=== PATIENT | male | born 2000 | race Two or more races ===

== ENCOUNTER 2020-06-24 11:46 | Outpatient (REF) | payer OTHER, SELFPAY | END 2020-06-24 11:47 | disposition home or self-care (01) | LOC: HO.LAB 11:46 | PROVIDERS: Visit Provider Internal Medicine | DX: Z20.828 Contact with and (suspected) exposure to other viral communicable diseases (principal) | CPT/HCPCS: C9803; U0003 ==

== ENCOUNTER 2021-07-09 10:35 | Outpatient (REF) | payer OTHER, SELFPAY ==
[2021-07-09 11:56] LABS: COVID-19 Test Negative (Negative)
== END 2021-07-09 10:36 | disposition home or self-care (01) ==
LOC: HO.LAB 10:35
PROVIDERS: Visit Provider Internal Medicine
DX: Z20.822 Contact with and (suspected) exposure to COVID-19 (principal)
CPT/HCPCS: 36415; 87635; C9803

== ENCOUNTER 2021-12-17 19:09 | Emergency (ER) | payer OTHER, SELFPAY ==
[2021-12-17 20:14] VITALS: BP 123/77; PULSE 82; RESP 16; TEMP 37; O2SAT 98; BMI 26.6
[2021-12-17 20:47] LABS: COVID-19 Test Negative (Negative); IDNOW Serial# 16C4AD1C; IDNOW Serial# 55D5AD1C; Influenza A Positive (Negative); Influenza B2 Negative (Negative)
[2021-12-17 21:56] VITALS: BP 127/72; PULSE 76; RESP 12; TEMP 37; O2SAT 98
--- NOTE | 2021-12-17 22:18 | ED.URI ---
HPI - URI/Sore Throat General Chief Complaint: General Medical Stated Complaint: headache, body pain, fever, v/d Time Seen by Provider: 12/17/21 22:07 Source: patient Mode of arrival: ambulatory Limitations: no limitations History of Present Illness HPI Narrative: Patient presents emergency department for evaluation headache, body aches, tactile fevers, vomiting, diarrhea, and cough x4 days. He is able to tolerate p.o. intake overall, vomiting is infrequent. Denies any known sick contacts. Has taken at home COVID-19 tests x3 which were negative. Denies neck pain, neck stiffness, chest pain, palpitations, difficulty breathing, abdominal pain, dysuria. MD elicited complaint: fever and cough Onset (ago): day(s) Description of mucous: watery Able to tolerate fluids by mouth: Yes Exacerbating factors: nothing Related Data Previous Rx's Medication Instructions Recorded albuterol sulfate 90 mcg/actuation 2 puff INHALATION Q4-6H PRN #6.7 g 12/17/21 aerosol inhaler Allergies Allergy/AdvReac Type Severity Reaction Status Date / Time No Known Allergies Allergy Verified 12/17/21 22:24 Review of Systems Review of Systems: Constitutional: Positive fever. No chills. No weakness. Positive fatigue. Positive body aches ENT/ Mouth: No Ear Pain, no Nasal Congestion, no sore throat, No Rhinorrhea, No Swallowing Difficulty Skin: No rash or itching. Cardiovascular: No chest pain. No palpitations. Respiratory: No shortness of breath. Positive cough. No sputum production. Gastrointestinal: Positive nausea. Positive vomiting. Positive diarrhea. No abdominal pain. Genitourinary: No burning micturition. No urinary frequency. Neurologic: Positive headache. No dizziness. No syncope. No numbness or tingling in the extremities. Musculoskeletal: No muscle pain. No back pain. No joint pain or stiffness. Yes all other systems are reviewed and are negative REPLACED BY [facility] Past Medical History Attestation statement: The following information was validated with the patient. Source: old records reviewed Social History Social History Advance Directives: No Advance Directives Information Provided: No Physical Exam Vital Signs: Vital Signs: Last Vital Signs Temp 98.6 F 12/17/21 21:56 Pulse 76 12/17/21 21:56 Resp 12 12/17/21 21:56 BP 127/72 12/17/21 21:56 Pulse Ox 98 12/17/21 21:56 BMI result Body Mass Index 26.6 Vital signs have been reviewed as normal and appeared to be correct. Blood pressure normal.? Heart rate normal.? Respiration rate normal. Temperature normal.? Oxygen saturation normal. Appearance: Alert.?Oriented to person, place and time. No acute distress.?Normal affect. Eyes: Pupils equal, round and reactive to light.? ENT: TM normal bilaterally. Pharynx normal.?? Neck: Normal inspection.? Neck supple.??No cervical adenopathy CVS: Heart sounds normal. Normal heart rate and rhythm.? Pulses normal.?? Respiratory: No respiratory distress.? Lung sounds clear on the left, fine inspiratory wheezing on the right Abdomen: Soft and non-tender. Normoactive bowel sounds. Skin: Skin warm and dry.? Normal skin color.? ? Extremities: No lower extremity edema.? Neuro: Moves all extremities spontaneously. Sensation intact bilaterally. No motor deficits. Ambulates with normal steady gait. Course Course Course Narrative: Patient is a 21-year-old male with past medical history of mild intermittent asthma, presenting for evaluation of upper respiratory symptoms with vomiting and diarrhea. COVID-19 testing negative. Influenza testing positive. Abdominal exam benign. At this time history and physical exam not consistent with ACS/PE/pneumonia. Well-appearing, nontoxic, afebrile, no tachycardia or tachypnea/hypoxia. Speaking clear full sentences, ambulatory with steady gait. Discussed conservative treatment including rest, hydration, Tylenol/ibuprofen as needed for fever and body aches, saline nasal spray, humidifier, ccrg-pay-nmskldm cold medication. Patient requesting a new prescription for his albuterol inhaler as he has ran out, will send this to the pharmacy. Offered Tamiflu and he declined. Advised to follow-up with primary care provider as needed, discussed reasons to return back to the emergency department. All questions were answered. Patient discharged home in stable condition. MDM - URI/Sore Throat Medical Records Attestation: I reviewed the patient's medical records. Lab Data Attestation: I reviewed the patient's lab results. Labs: Lab Results 12/17/21 12/17/21 Range/Units 20:15 20:15 COVID-19 (JOSE RAMON) Negative (Negative) COVID-19 Clin Com See Note Influenza Type A (RACHEAL) Positive A (Negative) Influenza Type B (RACHEAL) Negative (Negative) Influenza A & B Note See Note Discharge Plan Discharge Clinical Impression: Influenza A Patient Disposition: Home, Self-Care Instructions: Influenza (ED) Additional Instructions: Be sure to rest, stay well hydrated drinking plenty of fluids, eat small frequent meals. Tylenol/ibuprofen can be used as needed for fever/pain. Zrov-iws-tmmncyl cold medications may be helpful as well for symptoms. Saline nasal spray, humidifier may be helpful. New prescription for albuterol inhaler was sent to the pharmacy. You may return to the emergency department with any new or worsening symptoms or concerns. Follow-up with your primary care provider as needed. Should remain out of school/ work until symptoms have resolved and have been without a fever for 24 hours without the use of Tylenol or ibuprofen. Prescriptions: New albuterol sulfate 90 mcg/actuation HFA aerosol inhaler 2 puff inhalation Q4-6H PRN (Reason: shortness of breath or wheezing) Qty: 6.7 0RF Referrals: Ambreen Liang MD [Primary Care Provider] -
== END 2021-12-17 22:34 | disposition home or self-care (01) ==
PROVIDERS: Emergency Provider Internal Medicine; PCP Internal Medicine
DX: J10.1 Influenza due to other identified influenza virus with other respiratory manifestations (principal); R51.9 Headache, unspecified; M79.10 Myalgia, unspecified site; R50.9 Fever, unspecified; Z20.822 Contact with and (suspected) exposure to COVID-19
CPT/HCPCS: 87502; 87635; 99282; 99283

== ENCOUNTER 2022-05-12 | Outpatient (REF) | payer OTHER, SELFPAY ==
--- NOTE | ~2022-05-12 | XR_ITS ---
EXAMINATION: XR SHOULDER, RIGHT CLINICAL INFORMATION: Pain COMPARISON: None TECHNIQUE: AP external rotation, Grashey, scapular Y, and axillary views of the right shoulder. FINDINGS: The bones and soft tissues are normal. No fracture. Glenohumeral and acromioclavicular alignment is anatomic with normal joint space. No abnormal soft tissue calcifications. XR/XR shoulder RT min 2V IMPRESSION: Unremarkable right shoulder exam.
== END 2022-05-12 00:01 | disposition home or self-care (01) ==
LOC: HO.HOSX
PROVIDERS: Visit Provider Physician Assistant
DX: M25.511 Pain in right shoulder (principal); G89.29 Other chronic pain; M25.311 Other instability, right shoulder
CPT/HCPCS: 73030; 99202

== ENCOUNTER 2022-05-31 14:20 | Outpatient (REF) | payer OTHER, SELFPAY ==
--- NOTE | ~2022-05-31 | FL_ITS ---
PROCEDURE: XR ARTHROGRAM SHOULDER, RIGHT CLINICAL INFORMATION: Instability right shoulder. COMPARISON: Previous x-ray 05/12/2022. TECHNIQUE/FINDINGS: Procedure and risks and benefits including bleeding and infection were discussed with the patient and informed consent was obtained. The patient was positioned in the supine position. The right anterior shoulder was prepped and draped in the usual sterile fashion. Using fluoroscopic guidance and a 22-gauge spinal needle, access to the right shoulder joint was obtained. 1-2 mL of Omnipaque 300 was injected fluoroscopically confirming adequate placement in the joint space. Subsequently, a mixture of dilute gadolinium and saline and 1% lidocaine plain was injected pre-MRI. FLUOROSCOPY TIME: 0.1 minutes DAP: 0.5 cGy-cm2 Total dose: 3.6 mGy FL/FL arthrogram shoulder RT IMPRESSION: Right shoulder pre-MRI arthrogram.
--- NOTE | ~2022-05-31 | MR_ITS ---
EXAMINATION: MR SHOULDER WITH CONTRAST, RIGHT CLINICAL INFORMATION: Right shoulder pain with decreased range of motion for 5-6 years. Sports injury. COMPARISON: Right shoulder radiographs 05/12/2022 TECHNIQUE: MRI of the shoulder was performed following the intra-articular administration of a dilute gadolinium-containing solution (arthrogram) on a high-field scanner. FINDINGS: ROTATOR CUFF: Intact. No muscle atrophy or fatty infiltration. BICEPS: Normally located and intact. CORACOACROMIAL ARCH: The undersurface of the acromion is minimally curved with no subacromial spur. The acromioclavicular joint is normal. LABRUM/CAPSULE: Intra-articular contrast extends into the substance of the superior labrum at and just posterior to the biceps labral anchor consistent with a small labral/SLAP tear as seen on coronal images 10 through 12. Remainder of the labrum is intact. No paralabral cyst. GLENOHUMERAL JOINT/MARROW: No fracture or marrow replacing lesion. NERVES: No compressive mass lesion in the quadrilateral space or along the suprascapular nerve course. MR/MR shoulder RT w con IMPRESSION: 1. Small labral/SLAP tear, as above. 2. Intact rotator cuff. 3. Intact appearance of the long head of biceps tendon. 4. No chondral or osseous injury. 5. Normal acromioclavicular joint.
== END 2022-05-31 14:21 | disposition home or self-care (01) ==
LOC: HO.XRAY 14:20
PROVIDERS: Visit Provider Physician Assistant
DX: M25.311 Other instability, right shoulder (principal)
CPT/HCPCS: 23350; 73040; 73222; A9585

== ENCOUNTER → 2022-06-14 12:32 | Outpatient (BNVA) | payer OTHER, SELFPAY | PROVIDERS: Visit Provider Orthopaedic Surgery | DX: S43.431A Superior glenoid labrum lesion of right shoulder, initial encounter (principal) | CPT/HCPCS: 99212 ==

== ENCOUNTER 2023-04-11 11:21 | Outpatient (REF) | payer OTHER, SELFPAY ==
[2023-04-11 15:25] LABS: CT PCR NOT DETECTED (Not Detect.); NG PCR NOT DETECTED (Not Detect.)
[2023-04-12 04:05] LABS: ~Hepatitis C Antibody Nonreactive (Nonreactive)
[2023-04-13 05:23] LABS: Herpes Simplex Type 1 IgG <0.90 index; Herpes Simplex Type 2 IgG <0.90 index
== END 2023-04-11 11:22 | disposition home or self-care (01) ==
LOC: HO.HHCL 11:21
PROVIDERS: Visit Provider General Practice
DX: Z11.3 Encounter for screening for infections with a predominantly sexual mode of transmission (principal)
CPT/HCPCS: 0353U; 86695; 86696; 86803

== ENCOUNTER 2023-10-19 18:51 | Emergency (ER) | payer MEDICAID, SELFPAY ==
[2023-10-19 19:19] VITALS: BP 115/51; PULSE 72; RESP 14; TEMP 37.1; O2SAT 98; BMI 31.8
--- NOTE | 2023-10-19 19:20 | ED_ITS ---
[facility] General Adult General Chief complaint: Nausea/Vomiting/Diarrhea Stated complaint: vomiting and bodyaches Time Seen by Provider: 10/19/23 23:29 Source: patient Mode of arrival: ambulatory History of Present Illness HPI narrative: 43-year-old male with presentation of body aches with associated nausea, vomiting, chills, sore throat and decreased p.o. intake. Patient does state that he has been able to tolerate oral intake for the past hour. Denies sick contacts Related Data Previous Rx's Medication Instructions Recorded albuterol sulfate 90 mcg/actuation 2 puff inhalation Q4-6H PRN 12/17/21 aerosol inhaler shortness of breath or wheezing #6.7 grams ondansetron 4 mg disintegrating 4 mg PO Q8H PRN nausea and 10/19/23 tablet vomiting 4 days #10 tabs Allergies Allergy/AdvReac Type Severity Reaction Status Date / Time No Known Allergies Allergy Verified 10/19/23 19:23 Review of Systems 2 Review of Systems: Pertinent positives and negatives as stated in [facility] Past Medical History Source: nursing notes reviewed Social History Social History Current occupational status: employed Current occupation: right handed, 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 GENERAL: Well developed, well nourished, in no acute distress. HEAD: Normocephalic/atraumatic EYES: PERRLA, EOMI EARS: Ext canals without abnormality, TMs non-bulging and non-erythematous NOSE: Nares patent bilateral OROPHARYNX: no oral lesions noted, posterior pharynx clear and non-erythematous without noted tonsillar enlargement/erythema/exudates NECK: Supple, no adenopathy LUNGS: Normal breath sounds. No adventitious sounds or accessory muscle use. SpO2<98> CARDIOVASCULAR: Regular rate and rhythm without noted murmurs ABDOMEN: Soft, non-tender, non-distended with bowel sounds. MUSCULOSKELETAL: No tenderness, deformities, or effusions noted on gross inspection. EXTREMITIES: No cyanosis, clubbing or edema. SKIN: Inspection of the skin reveals no rashes NEUROLOGIC: Alert and oriented x 4. Strength and sensation to light touch were grossly intact x 4. Course Course Course Narrative: This is an RME: Additional HPI, ROS, PE not included below will be deferred to primary provider. This is a [id number]-male, with a hx of asthma, presenting to the ER with complaints of sore throat, body aches, nausea, vomiting since yesterday. Unable to tolerate PO. No AP. VSS. Well appearing. Plan: Labs, Viral swabs, strep swab Medications Administered Discontinued Medications Generic Name Dose Route Start Last Admin Trade Name Freq PRN Reason Stop Dose Admin Acetaminophen 650 mg 10/19/23 23:51 10/19/23 23:55 Acetaminophen 325 Mg Tablet PO 10/19/23 23:52 650 mg ONCE ONE Administration Ibuprofen 400 mg 10/19/23 23:52 10/19/23 23:55 Ibuprofen 400 Mg Tablet PO 10/19/23 23:53 400 mg ONCE ONE Administration Ondansetron HCl 4 mg 10/19/23 19:59 10/19/23 23:54 Ondansetron Odt 4 Mg Tab.Rapdis TRANSLINGU 10/19/23 20:00 4 mg ONCE ONE Administration Medical Decision Making Medical Decision Making MDM Narrative: 23-year-old male with history and clinical presentation, DDX: Viral illness, viral gastroenteritis, strep throat I reviewed all investigations and hematologic indices are negative for leukocytosis/left shift/anemia/thrombocytopenia. Chemistry indices are negative for PRIMO/electrolytes/liver enzyme derangements. Viral testing is negative and rapid strep is negative. All findings discussed with patient at bedside and he was offered Zofran and combination analgesics and then discharged home with presumptive diagnosis of viral illness. Differential Diagnosis Differential Diagnoses: The differential diagnosis associated with the presentation includes Please see the discussion above Admission/Observation Consideration of admission/observation: Escalation of care including admission/observation considered Please see the discussion above Lab Data [facility] Lab Attestation statement: I reviewed the patient's lab results. Please see the discussion above 10/19/23 19:57 10/19/23 19:57 Labs: Lab Results 10/19/23 Range/Units 19:57 WBC 5.6 (4.8-10.8) X10*3/uL RBC 5.01 (4.60-5.80) X10*6/uL Hgb 14.3 (14.0-18.0) g/dl Hct 41.2 L (42.0-52.0) % MCV 82.2 (80.0-98.0) fL MCH 28.5 (27.0-33.0) pg MCHC 34.7 (31.0-36.0) g/dl RDW 11.8 (11.0-16.0) % Plt Count 223 (160-400) X10*3/uL MPV 8.5 L (9.4-12.4) fL Immature Gran % (Auto) 0.4 (0.0-0.4) % Neut % (Auto) 62.7 (45-73) % Lymph % (Auto) 19.9 L (20-40) % [place] % (Auto) 10.8 (2-11) % Eos % (Auto) 6.0 H (0-4) % Baso % (Auto) 0.2 (0-2) % Lymph # (Auto) 1.1 L (1.2-4.9) X10*3/uL [place] # (Auto) 0.6 (0.1-1.2) X10*3/uL Eos # (Auto) 0.3 (0.0-0.4) X10*3/uL Baso # (Auto) 0.0 (0.0-0.2) X10*3/uL Abs Immat Gran (auto) 0.02 (0.00-0.03) X10*3/uL Absolute Neuts (auto) 3.5 (2.0-8.3) x10*3/uL Absolute Nucleated RBC 0.000 (0.0-0.012) X10*3/uL Nucleated RBC % (auto) 0.0 (0.0-0.2) /100WBC Sodium 138 (135-145) mmol/L Potassium 3.9 (3.3-5.1) mmol/L Chloride 105 (96-108) mmol/L Carbon Dioxide 23 (22-29) mmol/L Anion Gap 14 (12-20) BUN 13 (9-16) mg/dL Creatinine 0.96 (0.5-1.4) mg/dL Estim Creat Clear Calc 114.9 Estimated GFR > 60 Random Glucose 86 (60-115) mg/dL Calcium 8.5 (8.4-10.2) mg/dL Total Bilirubin 0.3 (0.0-1.0) mg/dL Direct Bilirubin 0.1 (0.0-0.5) mg/dL AST 20 (5-37) U/L ALT 20 (0-40) U/L Alkaline Phosphatase 57 (39-117) U/L Total Protein 7.2 (6.5-8.0) g/dL Albumin 4.1 (3.5-5.0) g/dL Lipase 31 (8-78) U/L Influenza Type A (PCR) NEGATIVE (Negative) Influenza Type B (PCR) NEGATIVE (Negative) RSV RNA Qual (PCR) NEGATIVE (Negative) SARS-CoV-2 RNA (RT-PCR) NEGATIVE (Negative) S. pyogenes GrpA RACHEAL Negative (Negative) External Record Review External record reviewed: Outpatient record, Prior outpatient labs and Prior outpatient radiology Critical Care Time Critical Care Time Critical Care Time: Yes Total Critical Care Time: 30 Attestation: I personally attest to this time spent taking care of the patient. Discharge Plan Discharge Clinical Impression: Viral syndrome Patient Disposition: Home, Self-Care Instructions: Viral Syndrome (ED) Additional Instructions: 1. Resume all home medications as prescribed. 2. Your receiving a script for nausea control medication which you should use and continues to drink plenty of fluids, especially water to rehydrate. Also recommend [id number] Tylenol/ibuprofen as needed for body aches and temperatures greater than 100.4. 3. Follow-up with your primary care doctor. Return to the ER for any worsening symptoms. Prescriptions: New ondansetron 4 mg tablet,disintegrating 4 mg PO Q8H PRN (Reason: nausea and vomiting) 4 Days Qty: 10 0RF No Action albuterol sulfate 90 mcg/actuation HFA aerosol inhaler 2 puff inhalation Q4-6H PRN (Reason: shortness of breath or wheezing) Qty: 6.7 0RF Stand Alone Forms: Work/School Release
[2023-10-19 20:03] LABS: Basophils Percent Auto 0.2 % (0-2); Eosinophils Absolute Auto 0.3 X10*3/uL (0.0-0.4); Hematocrit 41.2 % (42.0-52.0); Hemoglobin 14.3 g/dl (14.0-18.0); Imm Gran Abs Auto 0.02 X10*3/uL (0.00-0.03); Imm Gran Pct Auto 0.4 % (0.0-0.4); Lymphocytes Absolute Auto 1.1 X10*3/uL (1.2-4.9); Lymphocytes Percent Auto 19.9 % (20-40); MANUAL DIFF FLAG NO; Mean Corpuscular HGB Conc 34.7 g/dl (31.0-36.0); Mean Corpuscular Hemoglobin 28.5 pg (27.0-33.0); Mean Corpuscular Volume 82.2 fL (80.0-98.0); Mean Platelet Volume 8.5 fL (9.4-12.4); Monocytes Absolute Auto 0.6 X10*3/uL (0.1-1.2); Monocytes Percent Auto 10.8 % (2-11); Neutrophils Absolute Auto 3.5 x10*3/uL (2.0-8.3); Neutrophils Percent Auto 62.7 % (45-73); Platelet Count 223 X10*3/uL (160-400); Red Blood Count 5.01 X10*6/uL (4.60-5.80); Red Cell Distribution Width 11.8 % (11.0-16.0); White Blood Count 5.6 X10*3/uL (4.8-10.8)
[2023-10-19 20:11] LABS: IDNOW Serial# 08D9AD1C; Strep A Nucleic Acid Negative (Negative)
[2023-10-19 20:18] LABS: Alanine Aminotransferase 20 U/L (0-40); Albumin Level 4.1 g/dL (3.5-5.0); Alkaline Phosphatase 57 U/L (39-117); Anion Gap 14 (12-20); Aspartate Amino Transferase 20 U/L (5-37); Bilirubin Direct 0.1 mg/dL (0.0-0.5); Bilirubin Total 0.3 mg/dL (0.0-1.0); Blood Urea Nitrogen 13 mg/dL (9-16); Calcium 8.5 mg/dL (8.4-10.2); Carbon Dioxide 23 mmol/L (22-29); Chloride 105 mmol/L (96-108); Creatinine Clr Calc Pharmacy 114.9; Estimated Glomerular Filt Rate > 60; Glucose Random 86 mg/dL (60-115); Lipase 31 U/L (8-78); Potassium 3.9 mmol/L (3.3-5.1); Sodium 138 mmol/L (135-145); Total Protein 7.2 g/dL (6.5-8.0)
[2023-10-19 20:39] LABS: Influenza A PCR NEGATIVE (Negative); Influenza B PCR NEGATIVE (Negative); Resp Syncy Virus RNA Qual PCR NEGATIVE (Negative); SARS COV2 PCR INHOUSE NEGATIVE (Negative)
[2023-10-19] MEDS: Ondansetron ODT 4 MG TAB.RAPDIS TRANSLINGU (23:54)
[2023-10-19] MEDS: Acetaminophen 325 MG TABLET 650 MG PO (23:55)
[2023-10-19] MEDS: Ibuprofen 400 MG TABLET PO (23:55)
--- NOTE | 2023-10-19 23:57 | PC.NURSE ---
Pt medicated per Mar, provider into assess pt, po challenge.
[2023-10-20 00:01] VITALS: BP 110/56; PULSE 115; RESP 18; TEMP 36.5; O2SAT 96
--- NOTE | 2023-10-20 00:12 | PC.NURSE ---
This Rn medicated per sep, review discharge instructions with pt. pt verbalized understanding. no sign of distres.
[2023-10-20 00:16] VITALS: BP 110/86; PULSE 115; RESP 18; TEMP 36.5; O2SAT 96
== END 2023-10-20 00:17 | disposition home or self-care (01) ==
PROVIDERS: Physician Assistant Medical; Emergency Provider Student in an Organized Health Care Education/Training Program
DX: B34.9 Viral infection, unspecified (principal); Z11.52 Encounter for screening for COVID-19; Z20.828 Contact with and (suspected) exposure to other viral communicable diseases
CPT/HCPCS: 0241U; 80048; 80076; 83690; 85025; 87651; 99283; 99284

== ENCOUNTER 2023-11-08 09:37 | Outpatient (REF) | payer MEDICAID, SELFPAY ==
--- NOTE | ~2023-11-08 | XR_ITS ---
EXAMINATION: XR HAND, RIGHT XR HAND, LEFT CLINICAL INFORMATION: Bilateral hand pain of 5 months duration; no history of injury. COMPARISON: None available. TECHNIQUE: PA, lateral, and oblique views of each hand are submitted. FINDINGS: RIGHT HAND: The bones and soft tissues are normal. No fracture. Alignment is anatomic. Joint spaces are maintained. No erosions or soft tissue calcifications. LEFT HAND: The bones and soft tissues are normal. No fracture. Alignment is anatomic. Joint spaces are maintained. No erosions or soft tissue calcifications. XR/XR hand LT min 3V IMPRESSION: Normal radiographs of the bilateral hands.
--- NOTE | ~2023-11-08 | XR_ITS ---
EXAMINATION: XR HAND, RIGHT XR HAND, LEFT CLINICAL INFORMATION: Bilateral hand pain of 5 months duration; no history of injury. COMPARISON: None available. TECHNIQUE: PA, lateral, and oblique views of each hand are submitted. FINDINGS: RIGHT HAND: The bones and soft tissues are normal. No fracture. Alignment is anatomic. Joint spaces are maintained. No erosions or soft tissue calcifications. LEFT HAND: The bones and soft tissues are normal. No fracture. Alignment is anatomic. Joint spaces are maintained. No erosions or soft tissue calcifications. XR/XR hand RT min 3V IMPRESSION: Normal radiographs of the bilateral hands.
== END 2023-11-08 09:38 | disposition home or self-care (01) ==
LOC: HO.HHCX 09:37
PROVIDERS: Visit Provider General Practice
DX: M79.641 Pain in right hand (principal); M79.642 Pain in left hand
CPT/HCPCS: 36415; 73130; 85303; 85652; 86038; 86431

== ENCOUNTER 2023-11-08 10:02 | Outpatient (REF) | payer MEDICAID, SELFPAY | END 2023-11-08 10:03 | disposition home or self-care (01) | LOC: HO.HHCL 10:02 | PROVIDERS: Visit Provider General Practice | DX: Z13.89 Encounter for screening for other disorder (principal) ==

== ENCOUNTER 2023-11-08 10:20 | Outpatient (REF) | payer MEDICAID, SELFPAY ==
[2023-11-08 12:27] LABS: Erythrocyte Sedimentation Rate 2 MM/HR (0-15)
[2023-11-08 12:40] LABS: Rheumatoid Factor < 13.0 IU/mL (<15.0)
[2023-11-09 19:33] LABS: Anti Nuclear Antibody Screen NEGATIVE (NEGATIVE)
[2023-11-11 07:29] LABS: Protein C Activity 126 % normal (70-180)
== END 2023-11-08 10:21 | disposition home or self-care (01) ==
LOC: HO.HHCL 10:20
PROVIDERS: Visit Provider General Practice
DX: M25.511 Pain in right shoulder (principal)
CPT/HCPCS: 36415; 85302; 85303; 85652; 86038; 86431

== ENCOUNTER 2024-04-20 11:53 | Outpatient (REF) | payer MEDICAID, SELFPAY ==
--- NOTE | ~2024-04-20 | XR_ITS ---
EXAMINATION: XR SHOULDER, RIGHT CLINICAL INFORMATION: Right shoulder pain COMPARISON: 05/12/2022 TECHNIQUE: AP external rotation, Grashey, scapular Y, and axillary views of the right shoulder. FINDINGS: The bones and soft tissues are normal. No fracture. Glenohumeral and acromioclavicular alignment is anatomic with normal joint space. No abnormal soft tissue calcifications. XR/XR shoulder RT min 2V IMPRESSION: Normal right shoulder. Electronically signed by: Jose Eduardo Rivas MD 04/20/2024 03:17 PM EDT
== END 2024-04-20 11:54 | disposition home or self-care (01) ==
LOC: HO.HHCX 11:53
PROVIDERS: Visit Provider General Practice
DX: M25.511 Pain in right shoulder (principal)
CPT/HCPCS: 73030

== ENCOUNTER 2025-04-30 10:42 | Outpatient (REF) | payer MEDICAID, SELFPAY ==
--- OUTSIDE RECORDS SUMMARY | 2025-04-29 15:45 | XMS_ITS | Encounter Summary ---
Author Organization [employer] Address [address] [place] [address] 7 [place] [address] Care Team Providers Care Supervisor Grain [employer] Name Role Phone Annetta Mendoza MD Primary Care Provider [phone] Reason for Referral * Imaging (Routine) - Pending Review Specialty Diagnoses / Procedures Referred By Joe vasquez Referred To Contact Radiology Diagnoses Chronic left shoulder pain Procedures MR Shoulder w/o Contrast Left Annetta Mendoza MD [address] [place] [address] Phone: tel: fax: Referral ID Status Reason Start Date Expiration Date V isits Requested Visits Authorized [id number] Pending Review 04/30/2025 04/30/2026 1 1 * Consultation (Routine) - Closed Specialty Diagnoses / Procedures Referred By Joe vasquez Referred To Contact Optometry Diagnoses Blurry vision Annetta Mendoza MD [address] [place] [address] Phone: tel: fax: Referral ID Status Reason Start Date Expiration Date V isits Requested Visits Authorized [id number] Closed Specialty Services Required 04/29/2025 04/29/2026 1 1 Reason for Visit * Reason Comments Follow-up Encounter Details Date Type Department Care Team ([facility] st Contact Info) Description 04/29/2025 3:45 PM EDT Office Visit [facility] MEDICINE [address] [place] [address] Annetta Mendoza MD [address] [place] [address] Chronic left shoulder pain (Primary Dx); Dietary counseling; Exercise counseling; Overweight; Mild intermittent asthma without complication; Blurry vision; At risk for sexually transmitted disease due to partner with genital herpes; Encounter for immunization Social History Tobacco Use Types Packs/Day Years Used Date Smoking Tobacco: Never Smokeless Tobacco: Never Alcohol Use Standard Drinks/Week Comments Never 0 (1 standard drink = 0.6 oz pur e alcohol) Depression Answer Date Recorded Patient Health Questionnaire-9 Score 0 04/20/2024 Patient Health Questionnaire-9 Score 0 04/20/2024 Last PHQ-9: Questionnaire Data Not on file 0 04/20/2024 Housing Stability Answer Date Recorded What is your housing situation today? I have malena calderon 06/06/[address] you li ve. Do you have problems with any of the following? None of the above 06/06/2023 Food Insecurity Answer Date Recorded Within the past 12 months, y ou worried that your food would run out before you got money to buy more: Never True 06/06/2023 Within the past 12 months,th e food you bought just didn't last and you didn't have enough money to get more: Never True 12/2022 Transportation Answer Date Recorded In the past 12 months, has l ack of transportation kept you from medical appts, meetings, work or from getting things needed for daily living? No 06/06/2023 Utilities Answer Date Recorded In the past 12 months, has t he electric, gas, oil or water company threatened to shut off services in your home? No 06/06/2023 Depression Answer Date Recorded Patient Health Questionnaire-2 Score 0 04/30/2025 Internet Access Answer Date Recorded Internet Access Q1 Yes 04/20/2024 Internet Access Q2 Not on file 04/20/2024 Sex and Gender Information Value Date Recorded Sex Assigned at Male 05/31/2022 10:32 AM EDT Legal Sex Male 10:32 AM EDT Gender Identity Male 05/31/2022 10:32 AM EDT Sexual Orientation Straight 06/04/2024 8: 57 AM EST documented as of this encounter Last Filed Vital Signs Vital Sign Reading Time Taken Comments Blood Pressure 108/60 04/29/2025 4:00 PM EDT Pulse 60 04/29/2025 4:00 PM EDT Temperature 36.8 C (98.2 F) 04/29/2025 4:00 PM EDT Respiratory Rate 21 04/29/2025 4:00 PM EDT Oxygen Saturation - - Inhaled Oxygen Concentration - - Weight 89.8 kg (198 lb) 04/29/2025 4:00 PM EDT Height 172.7 cm (5' 8 ) 04/29/2025 4:00 PM EDT Body Mass Index 30.11 04/29/2025 4:00 PM EDT documented in this encounter Functional Status * Over the past 2 weeks, how often have you been bothered by any of the following problems? Question Answer Date of Assessment Author Patient Health Questionnaire -2 Score 0 04/30/2025 10:27 AM EDT Annetta Mendoza MD * Little interest or pleasure in doing things Answer Date of Assessment Author Not at all 04/30/2025 10:27 AM EDT Annetta Mendoza MD * Feeling down, depressed, or hopeless Answer Date of Assessment Author Not at all 04/30/2025 10:27 AM EDT Annetta Mendoza MD documented as of this encounter Progress Notes * Annetta eMndoza MD - 04/29/2025 3:45 PM EDT SUBJECTIVE: Evangelista Blair is a 25 y.o. male who presents for chronic disease management. Denies recent illness, ER visit, or hospitalization. Accompanied by Acute Concerns: Left shoulder MRI, recommended per [facility] 2. R shoulder injection-- schedule with residents 3. Midback pain with coughing- needs expectorant 4. R eye tremors- anxiety, coffee and preworkout (500mg caffeine daily) 5. Eye exam for school; [facility] nursing 6. Hair falling out Chronic Conditions and Plans: R shoulder pain, 05/08/24 posterior glenohumeral injection, has gone to physical therapy, has lost weight. This was all physician directed therapy. 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 06/26/24 R shoulder MRI labral tear Appointment scheduled Jul 06, 2024 at 945am with [facility] S/p labral repair 08/2024 and extensive PT Possible sun allergy- gets red and itchy bubbles Overweight Losing weight with intermittent fasting and going to gym 5-6 days a week Joint pain in fingers and back, thinks his family has history of rheumatoid arthritis Normal labs and imaging 2022 Asthma Not active currently Vit D deficiency Not active currently Health maintenance: STI screening- UTD, 07/2023 Imms- due for Flu and Hep B, given 04/29/25 Patient Active Problem List Diagnosis Date Noted Chronic left shoulder pain 04/30/2025 Blurry vision 04/30/2025 Overweight 04/30/2025 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 History of third molar tooth extraction 11/08/2024 Labral tear of shoulder, right, sequela 07/08/2024 Pain in joint of right shoulder 11/04/2023 Dental plaque 10/19/2023 Dental caries 10/19/2023 Impacted teeth 10/19/2023 Encounter for screening examination for sexually transmitted disease 04/11/2023 Sensitivity to sunlight 04/11/2023 Chronic pain of right upper extremity 12/08/2018 Vitamin D deficiency 12/08/2018 Hypoglycemia 09/29/2017 Mild intermittent asthma 09/29/2017 Surgical History[1] Social History Social History Narrative sexually active with monogamous AFAB partner Tobacco no EtoH social illicits no Review of Systems Constitutional: Negative. Respiratory: Negative. Cardiovascular: Negative. Gastrointestinal: Negative. Musculoskeletal: Positive for arthralgias. Skin: Positive for rash. OBJECTIVE: Vitals: 04/29/25 1600 BP: 108/60 BP Location: Left arm Patient Position: Sitting BP Cuff Size: Large adult Pulse: 60 Resp: 21 Temp: 98.2 ??F (36.8 ??C) TempSrc: Oral Weight: 198 lb (89.8 kg) Height: 5' 8 (1.727 m) Physical Exam Vitals and nursing note reviewed. Constitutional: Appearance: Normal appearance. He is normal weight. HENT: Head: Normocephalic and atraumatic. Right Ear: Tympanic membrane, ear canal and external ear normal. Left Ear: Tympanic membrane, ear canal and external ear normal. Nose: Nose normal. Mouth/Throat: Mouth: Mucous membranes are moist. Pharynx: Oropharynx is clear. Eyes: Extraocular Movements: Extraocular movements intact. Conjunctiva/sclera: Conjunctivae normal. Pupils: Pupils are equal, round, and reactive to light. Cardiovascular: Rate and Rhythm: Normal rate and regular rhythm. Pulses: Normal pulses. Heart sounds: Normal heart sounds. Pulmonary: Effort: Pulmonary effort is normal. Breath sounds: Normal breath sounds. Musculoskeletal: Left shoulder: Tenderness and bony tenderness present. No swelling, deformity, effusion, lacerationor crepitus. Decreased range of motion. Normal strength. Normal pulse. Cervical back: Normal range of motion and neck supple. Skin: General: Skin is warm and dry. Capillary Refill: Capillary refill takes less than 2 seconds. Comments: Scalp normal today, picture from 1 month ago shows variegated scaly hair loss Neurological: General: No focal deficit present. Mental Status: He is alert and oriented to person, place, and time. Psychiatric: Mood and Affect: Mood normal. Behavior: Behavior normal. ASSESSMENT/PLAN Problem List Items Addressed This Visit Mild intermittent asthma Relevant Medications guaiFENesin (Mucinex) 600 MG 12 hr tablet Chronic left shoulder pain - Primary Relevant Orders MR Shoulder w/o Contrast Left Blurry vision Relevant Orders Referral to Optometry Overweight Relevant Orders TSH W/Reflex to FT4 Comprehensive Metabolic Panel Hemoglobin A1c Other Visit Diagnoses Dietary counseling Exercise counseling At risk for sexually transmitted disease due to partner with genital herpes Relevant Orders Herpes Simplex Virus 1 and 2 (IgG), with Reflex to HSV-2 Inhibition Encounter for immunization Relevant Orders HEPATITIS B VACCINE ADULT 20 yrs + (Completed) FLU VACCINE TRIVALENT 4502-5656 (Fluarix) 6 mo + (Completed) Follow Up: 6-12 months or sooner prn Allergies[2] Current Medications[3] English Translation: Patient is bilingual and declines translation services [1] Past Surgical History: Procedure Laterality Date SHOULDER SURGERY Right [2] No Known Allergies [3] Current Outpatient Medications: albuterol 108 (90 Base) MCG/ACT inhaler, Inhale 2 puffs every 4 (four) hours for 5000 doses., Disp:18 g, Rfl: 2 guaiFENesin (Mucinex) 600 MG 12 hr tablet, Take 2 tablets (1,200 mg) by mouth 2 times daily. Do notcrush, chew, or split., Disp: 30 tablet, Rfl: 0 ketoconazole (NIZOral) 2 % cream, Apply topically Once per day., Disp: 60 g, Rfl: 3 ketoconazole (NIZOral) 2 % shampoo, Apply topically 2 (two) times a week., Disp: 120 mL, Rfl: 3 loratadine (Claritin) 10 MG tablet, Take 1 tablet by mouth at bed time., Disp: , Rfl: Spacer/Aero-Holding Chambers (OptiChamber Tala) misc, 1 each every 4 (four) hours if needed (asthma)., Disp: 1 each, Rfl: 0 documented in this encounter Plan of Treatment Scheduled Orders Name Type Priority Associated Diagnoses Orde r Schedule TSH W/Reflex to FT4 Lab Routine Overweight Expected: 04/29/2025 (Approximate), Expires: 04/29/2026 Comprehensive Metabolic Panel Lab Routine Overweight Expected: 04/29/2025 (Approximate), Expires: 04/29/2026 Hemoglobin A1c Lab Routine Overweight Expected: 04/29/2025 (Approximate), Expires: 04/29/2026 Herpes Simplex Virus 1 and 2 (IgG), with Reflex to HSV-2 Inhibition Lab Routine At risk for sexually transmitted disease due to partner with genital herpes Expected: 04/29/2025 (Approximate), Expires: 04/29/2026 MR Shoulder w/o Contrast Left Imaging Routine Chronic left shoulder pain Expected: 04/30/2025, Expires: 04/30/2026 Scheduled Referrals Name Type Priority Associated Diagnoses Orde r Schedule Referral to Optometry Outpatient Referral Routine Blurry vision Expected: 04/29/2025 (Approximate), Expires: 04/29/2026 documented as of this encounter Visit Diagnoses Diagnosis Chronic left shoulder pain- Primary Pain in joint, shoulder region Dietary counseling Dietary surveillance and counseling Exercise counseling Overweight Mild intermittent asthma without complication Blurry vision Other specified visual disturbances At risk for sexually transmitted disease due to partner with genital herpes Encounter for immunization documented in this encounter Additional Health Concerns Assessment Noted Time PHQ-9 Depression Total Score: 0 04/20/20 24 10:47 AM EDT documented as of this encounter Care Teams Supervisor [employer] Relationship Specialty Start Date End Date Annetta Mendoza MD [address] [place] [phone] PCP - General Family Medicine 02/05/22 documented as of this encounter
--- OUTSIDE RECORDS SUMMARY | 2025-04-30 11:59 | XMS_ITS | Encounter Summary ---
Author Organization [employer] Address [address] [facility] [address] [place] [address] Care Team Providers Care Therapy Tech Name Role Phone Annetta Mendoza MD Primary Care Provider [phone] Encounter Details Date Type Department Care Team (Latest Contact Info) Description 04/29/2025 Travel Social History Tobacco Use Types Packs/Day Years [...] AM EST documented as of this encounter Plan of Treatment Not on file documented as of this encounter Visit Diagnoses Not on filedocumented in this encounter Additional Health Concerns Assessment Noted Time PHQ-9 Depression Total Score: 0 04/20/20 24 10:47 AM EDT documented as of this encounter Care Teams Therapy Tech Relationship Specialty Start Date End Date Annetta Mendoza MD [address] [place] [address] PCP - General Family Medicine 02/05/22 documented as of this encounter
--- OUTSIDE RECORDS SUMMARY | 2025-04-30 11:59 | XMS_ITS | Encounter Summary ---
Author Organization [facility] Address [address] [facility] [address] [place] [phone] Phone Care Team Providers Care Dog And Cat Food Cook Name Role Phone Annetta Mendoza MD Primary Care Provider + Encounter Details Date Type Department Care Team (Late st Contact Info) Description 08/09/2024 Procedure Pass [place] Admitting Dept - Virtual Department [address] [place] [address] Social History Tobacco Use Types Packs/Day Years Used Date Smoking Tobacco: Never Smokeless Tobacco: Never Alcohol Use Standard Drinks/Week Comments Yes 0 (1 standard drink = 0.6 oz pur e alcohol) couple per month Education Answer Date Recorded Are you interested in more education? Not on juliann e 05/29/2024 Are you concerned about learning? Not on file 05/29/2024 No 05/29/2024 No 05/29/2024 Digital Access Answer Date Recorded No 05/29/2024 No 05/29/2024 Reliable internet access at home? Not on file 05/29/2024 Device with a working camera? Not on file Sex and Gender Information Value Date Recorded Sex Assigned at Not on file Legal Sex Male 2:16 PM EDT Gender Identity Not on file Sexual Orientation Not on file documented as of this encounter Plan of Treatment Not on file documented as of this encounter Visit Diagnoses Not on filedocumented in this encounter Care Teams Dog And Cat Food Cook Relationship Specialty Start Date End Date Annetta Mendoza MD PCP - General Family Medicine 11/22/23 documented as of this encounter Additional Source Comments The information contained in this document represents components of the legal health record. It is not the complete legal health record.[facility]
--- OUTSIDE RECORDS SUMMARY | 2025-04-30 11:59 | XMS_ITS | Clinical Summary ---
Author Organization [employer] Address [address] [facility] 7t [place] [address] Care Team Providers Care Chef Manager Name Role Phone Annetta Mendoza MD Primary Care Provider [phone] Allergies No known active allergies Medications loratadine (Claritin) 10 MG tablet Take 1 tablet by mouth at bed time. 2 Active albuterol 108 (90 Base) MCG/ACT inhaler Inhale 2 puffs every 4 (four) hours for 5000 doses. 18 g 2 3 10/17/19 26 Active Spacer/Aero-Hol ding Chambers (OptiChamber Tala) misc 1 each every 4 (four) hours if needed (asthma). 1 each 3 Active guaiFENesin (Mucinex) 600 MG 12 hr tablet Take 2 tablets (1,200 mg) by mouth 2 times daily. Do not crush, chew, or split. 30 tablet 5 04/29/20 26 Active ketoconazole (NIZOral) 2 % cream Apply topically Once per day. 60 g 3 5 Active ketoconazole (NIZOral) 2 % shampoo Apply topically 2 (two) times a week. 120 mL 3 5 Active montelukast (Singulair) 10 MG tablet Take 1 tablet (10 mg) by mouth at bedtime. 30 tablet 2 3 04/30/20 25 Discontinu ed(Therapy completed) nabumetone (Relafen) 750 MG tablet Take 1 tablet (750 mg) by mouth 2 times daily. 60 tablet 3 4 04/30/20 25 Discontinu ed(Therapy completed) amoxicillin (Amoxil) 500 MG capsuleIndicati ons:Pharyngitis , unspecified etiology Take 1 tab po bid for 10 days 20 capsule 5 04/30/20 25 Discontinu ed(Therapy completed) dextromethorpha n-guaiFENesin (Mucinex DM) 30-600 MG 12 hr tablet Take 1 tablet by mouth every 12 (twelve) hours. Do not crush, chew, or split. 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 MRI ordered Appointment with [facility] Ortho scheduled for Jul 06, 2024 We will fax MRI results to [facility] when they become available Dental plaque 10/19/2023 Dental caries 10/19/2023 Impacted teeth 10/19/2023 Encounter for screening exam ination for sexually transmitted disease 04/11/2023 Sensitivity to sunlight 04/11/2023 Assessment & Plan (04/11/2023 10:59 AM EDT): Consistent for years Avoid highest hours of sunlight Cover with loose fitting clothing Cool water compresses afterwards Antihistamine for itch Chronic pain of right upper extremity 12/08/2018 Assessment & Plan (04/11/2023 10:59 AM EDT): Call [facility] to schedule Vitamin D deficiency 12/08/2018 Hypoglycemia 09/29/2017 Mild intermittent asthma 09/29/2017 Encounters Date Type Department Care Team Description 04/30/2025 Telephone [facility] MEDICINE [address] [place] [phone] Annetta Mendoza MD Lab Orders 04/29/2025 3:45 PM EDT Office Visit [facility] MEDICINE [address] [place] [address] Annetta Mendoza MD Chronic left shoulder pain (Primary Dx); Dietary counseling; Exercise counseling; Overweight; Mild intermittent asthma without complication; Blurry vision; At risk for sexually transmitted disease due to partner with genital herpes; Encounter for immunization 04/29/2025 Travel 04/29/2025 Telephone [facility] MEDICINE [address] [place] [address] Annetta Mendoza MD chart prep 04/09/2025 10:00 AM EDT Office Visit [facility] WALK-IN CENTER [address] [place] [address] Sugey Khan MD Pharyngitis, unspecified etiology (Primary Dx) 04/09/2025 Travel from Last 3 Months Immunizations Immunization Administration Dates Next Due Hep B, adult 04/29/2025 Influenza injectable quadriv alent IIV4 with preservative 06/28/2017 Influenza injectable quadrivalent preservative f ree 07/20/2022 Influenza, seasonal, injectable, preservative fr ee 04/29/2025,04/12/2024 Pfizer Covid-19 Vaccine 12+ 04/20/2024 Pfizer Covid-19 Vaccine 12+ Bivalent 07/20/2022 Pneumococcal Conjugate PCV 20 04/20/2024 Tdap 04/20/2024 Social History Tobacco Use Types Packs/Day Years Used Date Smoking Tobacco: Never Smokeless Tobacco: Never Tobacco Cessation:Counseling Given: Not Answered Alcohol Use Standard Drinks/Week Comments Never 0 [...] Orientation Straight 06/04/2024 8: 57 AM EST Last Filed Vital Signs Vital Sign Reading Time Taken Comments Blood Pressure 108/60 04/29/2025 4:00 PM EDT Pulse 60 04/29/2025 4:00 PM EDT Temperature 36.8 C (98.2 F) 04/29/2025 4:00 PM EDT Respiratory Rate 21 04/29/2025 4:00 PM EDT Oxygen Saturation 98% 04/09/2025 9:49 AM EDT Inhaled Oxygen Concentration - - Weight 89.8 kg (198 lb) 04/29/2025 4:00 PM EDT Height 172.7 cm (5' 8 ) 04/29/2025 4:00 PM EDT Body Mass Index 30.11 04/29/2025 4:00 PM EDT Plan of Treatment Health Maintenance Due Date Last Done Comments Disability Screening 1998 Alcohol/Substance Use Screening 2010 Family Planning (PISQ) 2013 HPV Vaccines (1 - Male 3-dose series) 2013 Dental X-Ray: Bitewings 10/19/2024 10/19/19, 10/27/2021, 01/08/2019, Additional history exists Dental X-Ray: Full Mouth 10/28/2024 10/27/2021, 01/0 04/2018 Dental Oral Exam 01/15/2025 07/16/2024, , 10/27/2021, Additional history exists Dental Prophylaxis 01/15/2025 07/16/2024, 0 10/19/2023, 06/22/2022, Additional history exists SDOH Screening 04/20/2025 04/20/2024 Hepatitis B Vaccines (2 of 3 - 19+ 3-dose series) 05/27/2025 04/29/2025 Depression Screening 04/30/2026 04/30/2025, 04/20/20 Tobacco Screening 04/30/2026 04/30/2025 DTaP/Tdap/Td Vaccines (2 - Td or Tdap) 04/20/2034 04/20/2024 Zoster Vaccines (1 of 2) 01/23/2048 RSV Patients and Patients Aged 60 years or older (1 - 1-dose 75+ series) 2073 HIV Screening Completed 04/02/2022 Hepatitis C Screening Completed 04/11/2023, 022 COVID-19 Vaccine Completed 04/20/2024, , 07/10/2021, Additional history exists Pneumococcal Vaccine: Pediatrics (0 to 5 Years) and At-Risk Patients (6 to 49) Years Completed 04/20/2024 Influenza Vaccine Completed 04/29/2025, , 07/20/2022, Additional history exists HIB Vaccines Aged Out No longer eligi ble based on patient's age to complete this topic Hepatitis A Vaccines Aged Out No long er eligible based on patient's age to complete this topic IPV Vaccines Aged Out No longer eligi ble based on patient's age to complete this topic Meningococcal B Vaccine Aged Out No l onger eligible based on patient's age to complete this topic Meningococcal Vaccine Aged Out No jcarlos ceci eligible based on patient's age to complete this topic RSV under 20 months Aged Out No longe r eligible based on patient's age to complete this topic Rotavirus Vaccines Aged Out No longer eligible based on patient's age to complete this topic Procedures Procedure Name Priority Date/Time Associated Diagnosis Comments POCT RAPID COVID ANTIGEN Routine 04/09/2025 10:09 AM EDT Pharyngitis, unspecified etiology POCT INFLUENZA A (ID NOW RAPID MOLECULAR) Routine 04/09/2025 10:09 AM EDT Pharyngitis, unspecified etiology POCT INFLUENZA B (ID NOW RAPID MOLECULAR) Routine 04/09/2025 10:09 AM EDT Pharyngitis, unspecified etiology POCT RAPID STREP A Routine 04/09/2025 10 :09 AM EDT Pharyngitis, unspecified etiology PROPHYLAXIS - ADULT Routine 07/16/2024 2 :00 PM EST Dental calculus Dental plaque PERIODIC ORAL EVALUATION - ESTABLISHED PATIENT Routine 07/16/2024 2:00 PM EST BITEWINGS - 4 RADIOGRAPHIC IMAGES Routine 10/19/2023 1:00 PM EDT Dental plaque Dental caries Impacted teeth Encounter for dental examination HEPATITIS C ANTIBODY Routine 04/11/2023 12:02 PM EDT Encounter for screening examination for sexually transmitted disease HIV 1/2 ANTIGEN/ANTIBODY, FOURTH GENERATION W/RFL Routine 04/02/2022 10:03 AM EDT INTRAORAL - COMPLETE SERIES OF RADIOGRAPHIC IMAGES Routine 10/27/2021 12:00 AM EDT from Last 3 Months or Most Recently Relevant to Health Maintenance Results * Influenza B (ID NOW Rapid Molecular) (04/09/2025 10:09 AM EDT) Influenza B Negative Negative, Indeterminate [facility] Swab 04/09/2025 10:0 9 AM EDT us Sugey Khan MD POINT OF CARE TEST ENTER/E DIT ORDERABLES Final Result [facility] [address] [place] [phone] * Influenza A (ID NOW Rapid Molecular) (04/09/2025 10:09 AM EDT) Pathologist [facility] Influenza A Negative Negative, Indeterminate [facility] Swab 04/09/2025 10:0 9 AM EDT Sugey Khan MD POINT OF CARE TEST ENTER/E DIT ORDERABLES Final Result Performing Organization Address [facility]/ZIP Co de Phone Number [facility] [address] [place] [address] [phone] * POCT Rapid COVID Ag (04/09/2025 10:09 AM EDT) [facility] Rapid COVID Ag Negative Swab 04/09/2025 10:0 9 AM EDT Sugey Khan MD POINT OF CARE TEST ENTER/E DIT ORDERABLES Final Result * POCT rapid strep A manually resulted (04/09/2025 10:09 AM EDT) [facility] Rapid Strep A Screen Negative Negative, None Detected [facility] Swab 04/09/2025 10:0 9 AM EDT Sugey Khan MD POINT OF CARE TEST ENTER/E DIT ORDERABLES Final Result Performing Organization Address [facility] Co de Phone Number [facility] [address] [place] [address] [phone] * Hepatitis C Ab (04/11/2023 12:02 PM EDT) [facility] Hepatitis C Antibody Nonreactive Nonreactive [facility] Comment:Antibodies to HCV no t detected; does not exclude early acuteHCV infection. Blood 04/11/2023 12:0 2 PM EDT 04/11/2023 1:15 PM EDT Annetta Mendoza MD LAB BLOOD ORDERABLES Final Res ult Performing Organization Address City/[facility]/ZIP Co de Phone Number [facility] [address] [place] [address] [phone] * HIV 1/2 ANTIGEN/ANTIBODY,FOURTH GENERATION W/RFL (04/02/2022 10:03 AM EDT) HIV-1/2 ANTIGEN AND ANTIBODIES, 4TH GENERATION W/ REFLEX NON-REACT BRYAN NON-REACT BRYAN [facility] Comment: HIV-1 antigen and HIV-1/HIV-2 antibodies were not detected. There is no laboratory evidence of HIV infection. PLEASE NOTE: This information has been disclosed to you from records whose confidentiality may be protected by state law. If your state requires such protection, then the state law prohibits you from making any further disclosure of the information without the specific written consent of the person to whom it pertains, or as otherwise permitted by law. A general authorization for the release of medical or other information is NOT sufficient for this purpose. For additional information please refer to http://education.ValveXchange/faq/CMA928 (This link is being provided for informational/ educational purposes only.) The performance of this assay has not been clinically validated in patients less than 2 years old. 04/02/2022 10:0 3 AM EDT us Annetta Mendoza MD LAB BLOOD ORDERABLES Final Res ult Performing Organization Address City/State/[facility] Co de Phone Number [facility] [address] from Last 3 Months or Most Recently Relevant to Health Maintenance Insurance [facility] C[facility] [place] [address] [place] [address] Care Teams Chef Manager Relationship Specialty Start Date End Date Annetta Mendoza MD [address] [place] [phone] PCP - General Family Medicine 02/05/22
--- OUTSIDE RECORDS SUMMARY | 2025-04-30 11:59 | XMS_ITS | Encounter Summary ---
Author Organization [employer] Address [address] [facility] 7t [place] [address] Care Team Providers Care Overhead Cleaner Maintainer Name Role Phone Annetta Mendoza MD Primary Care Provider [phone] Reason for Visit * Reason Onset Date Comments Lab Orders 04/30/2025 Encounter Details Date Type Department Care Team ([facility] st Contact Info) Description 04/30/2025 Telephone [facility] MEDICINE [address] [place], [place] [phone] Annetta Mendoza MD [address] [place], [place] [phone] Lab Orders Social History Tobacco Use Types Packs/Day Years [...] AM EST documented as of this encounter Functional Status * Over the [...] Mendoza MD documented as of this encounter Miscellaneous Notes * Telephone Encounter - Mari Blair - 04/30/2025 11:38 AM EDT TC from pt requesting to re-fax or re-order the lab order for a Comprehensive Metabolic Panel. Pt stated he was advised to go to [facility] to complete that specific test, but when he went there, he was told there was nothing in the system. Contact pt at [phone] Need property management supervisor documented in this encounter Plan of Treatment Not on file documented as of this encounter Visit Diagnoses Not on filedocumented in this encounter Additional Health Concerns Assessment Noted Time PHQ-9 Depression Total Score: 0 04/20/20 24 10:47 AM EDT documented as of this encounter Care Teams Overhead Cleaner Maintainer Relationship Specialty Start Date End Date Annetta Mendoza MD [address] [place] [address] PCP - General Family Medicine 02/05/22 documented as of this encounter
--- OUTSIDE RECORDS SUMMARY | 2025-04-30 12:00 | XMS_ITS | Encounter Summary ---
Author Organization [employer] Address [address] [facility] 7t [place] [address] Care Team Providers Care Lawn Mower Mechanic Name Role Phone Annetta Mendoza MD Primary Care Provider [phone] Encounter Details Date Type Department Care Team (Latest Contact Info) Description 06/07/2019 Abstract [facility] CONVERSIONS Dental, Provider, DDS Social History Tobacco Use Types Packs/Day Years Used Date Smoking Tobacco: Never Assessed Sex and Gender Information Value Date Recorded Sex Assigned at Male 05/31/2022 10:32 AM EDT Legal Sex Male 10:32 AM EDT Gender Identity Male 05/31/2022 10:32 AM EDT Sexual Orientation Straight 06/04/2024 8: 57 AM EST documented as of this encounter Plan of Treatment Not on file documented as of this encounter Visit Diagnoses Not on filedocumented in this encounter Care Teams Lawn Mower Mechanic Relationship Specialty Start Date End Date Annetta Mendoza MD [address] [place] [phone] PCP - General Family Medicine 02/05/22 documented as of this encounter
--- OUTSIDE RECORDS SUMMARY | 2025-04-30 12:00 | XMS_ITS | Encounter Summary ---
Author Organization [employer] Address [address] [facility] 7t [place] [address] Care Team Providers Care Sewer Separation Designer Name Role Phone Annetta Mendoza MD Primary Care Provider Reason for Visit * Reason Onset Date Comments chart prep 04/29/2025 Encounter Details Date Type Department Care Team ([facility] st Contact Info) Description 04/29/2025 Telephone [facility] MEDICINE [address] [place], [place] [phone] Annetta Mendoza MD [address] [place], [place] [phone] chart prep Social History Tobacco Use Types Packs/Day Years [...] AM EST documented as of this encounter Miscellaneous Notes * Telephone Encounter - Juan Tam [place] - 04/29/2025 9:57 AM EDT Chart Prep Labs: not applicable Images: done Referrals: complete Vaccines due: Flu, Hep B, and HPV Screenings: not applicable Overdue care gaps: SBIRT, SDOH, PHQ-9, JOSE-7, and Disability screen documented in this encounter Plan of Treatment Not on file documented as of this encounter Visit Diagnoses Not on filedocumented in this encounter Additional Health Concerns Assessment Noted Time PHQ-9 Depression Total Score: 0 04/20/20 24 10:47 AM EDT documented as of this encounter Care Teams Sewer Separation Designer Relationship Specialty Start Date End Date Annetta Mendoza MD [address] [place] [phone] PCP - General Family Medicine 02/05/22 documented as of this encounter
--- OUTSIDE RECORDS SUMMARY | 2025-04-30 12:00 | XMS_ITS | Encounter Summary ---
Author Organization [employer] Address 75 [facility] 7t [place] [address] Care Team Providers Care Manager Of Employee Relations Name Role Phone Annetta Mendoza MD Primary Care Provider [phone] Reason for Referral * Consultation (Routine) - Closed Specialty Diagnoses / Procedures Referred By Contac t Referred To Contact Physical Therapy Diagnoses Labral tear of shoulder, right, sequela Annetta Mendoza MD [address] [place] [address] Phone: tel: fax: [facility] [address] [place], [place] Phone: tel: fax: Referral ID Status Reason Start Date Expiration Date V isits Requested Visits Authorized [id number] Closed Specialty Services Required 09/27/2024 09/27/2025 6 6 Encounter Details Date Type Department Care Team (Late st Contact Info) Description 09/28/2024 Orders Only [facility] MEDICINE [address] [place], [place] [phone] Annetta Mendoza MD [address] [place], [place] [phone] Labral tear of shoulder, right, sequela (Primary Dx) Social History Tobacco Use Types Packs/Day Years [...] Date Recorded Patient Health Questionnaire-2 Score 0 04/20/2024 Internet Access Answer Date Recorded Internet Access Q1 Yes 04/20/2024 Internet Access Q2 Not on file 04/20/2024 Sex and Gender Information Value Date Recorded Sex Assigned at Male 05/31/2022 10:32 AM EDT Legal Sex Male 10:32 AM EDT Gender Identity Male 05/31/2022 10:32 AM EDT Sexual Orientation Straight 06/04/2024 8: 57 AM EST documented as of this encounter Plan of Treatment Scheduled Referrals Name Type Priority Associated Diagnoses Orde r Schedule Referral to Physical Therapy Outpatient Referral Routine Labral tear of shoulder, right, sequela Expected: 09/28/2024 (Approximate), Expires: 09/28/2025 documented as of this encounter Visit Diagnoses Diagnosis Labral tear of shoulder, right, sequela- Primary documented in this encounter Additional Health Concerns Assessment Noted Time PHQ-9 Depression Total Score: 0 04/20/20 24 10:47 AM EDT documented as of this encounter Care Teams Manager Of Employee Relations Relationship Specialty Start Date End Date Annetta Mendoza MD [address] [place] [phone] PCP - General Family Medicine 02/05/22 documented as of this encounter
--- OUTSIDE RECORDS SUMMARY | 2025-04-30 12:00 | XMS_ITS | Encounter Summary ---
Author Organization [employer] Address 75 [facility] 7t [place] [address] Care Team Providers Care Water Resource Specialist Name Role Phone Annetta Mendoza MD Primary Care Provider [phone] Encounter Details Date Type Department Care Team (Latest Contact Info) Description 10/29/2021 Abstract [facility] CONVERSIONS Dental, Provider, DDS Social History Tobacco [...] on filedocumented in this encounter Care Teams Water Resource Specialist Relationship Specialty Start Date End Date Annetta Mendoza MD [address] [place] [phone] PCP - General Family Medicine 02/05/22 documented as of this encounter
--- OUTSIDE RECORDS SUMMARY | 2025-04-30 12:01 | XMS_ITS | Clinical Summary ---
Author Organization [facility] Address [address] [facility] [address] [place] [phone] Phone Care Team Providers Care Underground Miner Name Role Phone Annetta Mendoza MD Primary Care Provider + Allergies No known active allergies Medications oxyCODONE 5 MG immediate release tablet Take 1 tablet (5 mg total) by mouth every 4 (four) hours as needed. Partial fill ok 30 tablet Active Additional Information Patient not taking.Reported on 08/21/2024 Social History Tobacco Use Types Packs/Day Years Used Date Smoking Tobacco: Never Smokeless Tobacco: Never Tobacco Cessation:Counseling Given: Not Answered Alcohol Use Standard Drinks/Week Comments Yes 0 [...] on file Sexual Orientation Not on file Last Filed Vital Signs Vital Sign Reading Time Taken Comments Blood Pressure 120/63 08/09/2024 3:30 PM EST Pulse 84 08/09/2024 3:30 PM EST Temperature 36 C (96.8 F) 08/09/2024 3:30 PM EST Respiratory Rate 18 08/09/2024 3:30 PM EST Oxygen Saturation 98% 08/09/2024 3:30 PM EST Inhaled Oxygen Concentration - - Weight 82.6 kg (182 lb) 08/09/2024 11:15 AM EST Height 172.7 cm (5' 8 ) 08/09/2024 11:15 AM EST Body Mass Index 27.67 08/09/2024 11:15 AM EST Plan of Treatment Health Maintenance Due Date Last Done Comments DEPRESSION SCREENING 2010 HEPATITIS C SCREENING 01/23/2016 HIV ONE-TIME SCREENING (18-65 YEARS) 01/23/2016 INFLUENZA VACCINE (#1) 2025 , 07/20/2022, 06/28/2017 Adult Td,Tdap Booster 04/20/2034 04/20/2024 COVID-19 VACCINE Completed 04/20/2024, , 07/10/2021, Additional history exists PNEUMOCOCCAL VACCINES (0-49 years) Aged Out 04/20/2024 No longer eligible based on patient's age to complete this topic SMOKING STATUS SCREENING (Once After 26 Yrs) Completed 08/09/2024 HEPATITIS A VACCINES Aged Out No long er eligible based on patient's age to complete this topic HIB VACCINES Aged Out No longer eligi ble based on patient's age to complete this topic MENINGOCOCCAL VACCINES (ACWY) Aged Out No longer eligible based on patient's age to complete this topic MENINGOCOCCAL VACCINES (B) Aged Out N o longer eligible based on patient's age to complete this topic Medical Devices Implanted Type Area Psychiatry Adult Physician Device Identifier Shelf Expiration Date Model / Serial / Lot Q-Fix Knotless All-Suture Daykin, 1.8mm, With One Ultrabraided Suture, Blue Implanted:Qty: 2 on 08/09/2024 by Nirav Badillo DO at [facility] Right: Shoulder [employer] 06/22/2027 / / [id number] Insurance [facility] C3 ACO C3 ACO C3 ACO C3 ACO C3 ACO C3 ACO Care Teams Underground Miner Relationship Specialty Start Date End Date Annetta Mendoza MD PCP - General Family Medicine 11/22/23 Additional Source Comments The information contained in this document represents components of the legal health record. It is not the complete legal health record.[facility]
[2025-04-30 16:25] LABS: Alanine Aminotransferase 23 U/L (0-40); Albumin Level 4.7 g/dL (3.5-5.0); Alkaline Phosphatase 56 U/L (39-117); Anion Gap 10 (12-20); Aspartate Amino Transferase 25 U/L (5-37); Blood Urea Nitrogen 14 mg/dL (9-16); Calcium 9.3 mg/dL (8.4-10.2); Carbon Dioxide 29 mmol/L (22-29); Chloride 107 mmol/L (96-108); Estimated Glomerular Filt Rate > 60; Potassium 5.0 mmol/L (3.3-5.1); Sodium 141 mmol/L (135-145); Total Protein 7.1 g/dL (6.5-8.0)
== END 2025-04-30 10:43 | disposition home or self-care (01) ==
LOC: HO.HHCL 10:42
PROVIDERS: PCP General Practice; Visit Provider General Practice
DX: E66.3 Overweight (principal)
CPT/HCPCS: 36415; 80053; 83036; 84443

== ENCOUNTER 2025-05-02 09:32 | Outpatient (REF) | payer MEDICAID, SELFPAY ==
--- OUTSIDE RECORDS SUMMARY | 2025-04-29 15:45 | XMS_ITS | Encounter Summary ---
Author Organization [employer] Address [address] [place] [address] 7 [place] [address] Care Team Providers Care Electronic Systems Technician Name Role Phone Annetta Mendoza MD Primary Care Provider [phone] Reason for Referral * Imaging (Routine) - Authorized Specialty Diagnoses / Procedures Referred By Joe vasquez Referred To Contact Radiology Diagnoses Chronic left shoulder pain Procedures MR Shoulder w/o Contrast Left Annetta Mendoza MD [address] [place] [address] Phone: tel: fax: [address] Phone: tel: fax: Referral ID Status Reason Start Date Expiration Date V isits Requested Visits Authorized [id number] Authorized 04/30/2025 04/30/2026 1 1 * Consultation (Routine) - Closed Specialty Diagnoses / Procedures Referred By Joe vasquez Referred To Contact Optometry Diagnoses Blurry vision Annetta Mendoza MD [address] [place] [address] Phone: tel: fax: Referral ID Status Reason Start Date Expiration Date V isits Requested Visits Authorized [id number] Closed Specialty Services Required 04/29/2025 04/29/2026 1 1 Reason for Visit * Reason Comments Follow-up Encounter Details Date Type Department Care Team (Late st Contact Info) Description 04/29/2025 3:45 PM EDT Office Visit [facility] MEDICINE [address] [place] [address] Annetta Mendoza MD [address] [place] [address] Chronic left shoulder pain (Primary Dx); Dietary [...] Author Not at all 04/30/2025 10:27 AM KRYST Annetta Mendoza MD documented as of this encounter Progress Notes * Annetta Mendoza MD - 04/29/2025 3:45 PM EDT SUBJECTIVE: Evangelista Blair is a 25 y.o. male who presents for chronic disease management. Denies recent illness, ER visit, or hospitalization. Acute Concerns: Left shoulder MRI, recommended per [facility] 2. R shoulder injection-- schedule with residents 3. Midback pain with coughing- needs expectorant 4. R eye tremors- anxiety, coffee and preworkout (500mg caffeine daily) 5. Eye exam for school; [facility] nursing 6. Hair falling out, appears to [facility], using shampoo with zinc ordered online Chronic Conditions and Plans: R shoulder pain, 05/08/24 posterior glenohumeral injection, has gone to physical therapy, has lost weight. This was all physician directed therapy. 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 06/26/24 R shoulder MRI labral tear Appointment scheduled Jul 06, 2024 at 945am with [facility] S/p labral repair 08/2024 and extensive [...] to FT4 Comprehensive Metabolic Panel Hemoglobin A1c (Completed) Other Visit Diagnoses Dietary counseling Exercise counseling At risk for sexually transmitted disease due to partner with genital herpes Relevant Orders Herpes Simplex Virus 1 and 2 (IgG), with Reflex to HSV-2 Inhibition Encounter for immunization Relevant Orders HEPATITIS B VACCINE ADULT 20 yrs + (Completed) FLU VACCINE TRIVALENT [id number] (Fluarix) 6 mo + (Completed) Follow Up: 6-12 months or sooner prn Allergies[2] Current Medications[3] Niuean Translation: Patient is bilingual and declines translation [...] documented in this encounter Plan of Treatment Upcoming Encounters Date Type Department Care Team (Late st Contact Info) Description 05/08/2025 9:00 AM EDT Office Visit [facility] MEDICINE [address] [place] [address] Annetta Mendoza MD [address] [place] [address] 08/30/2025 11:00 AM EST Office Visit [facility] OPTOMETRY [address] [place] [address] Hallie Liu, OD [address] [place] [address] Scheduled Orders Name Type Priority Associated Diagnoses Orde r Schedule Herpes Simplex Virus 1 and 2 (IgG), [...] Expires: 04/29/2026 documented as of this encounter Procedures Procedure Name Priority Date/Time Associated Diagnosis Comments TSH W/REFLEX TO FT4 Routine 04/30/2025 1 0:48 AM EDT Overweight HEMOGLOBIN A1C Routine 04/30/2025 10:48 AM EDT Overweight COMPREHENSIVE METABOLIC PANEL Routine 04/30/2025 10:48 AM EDT Overweight documented in this encounter Results * Hemoglobin A1c (04/30/2025 10:48 AM EDT) Hemoglobin A1c 5.1 <6.0 % [facility] Comment:Hemoglobin A1C Refer ence Range Adults: 4.8 - 6.0 % Non diabetic: < 6.0 % Goal: < 7.0 %Additional Action Suggested: > 8.0 %Note: Hemoglobin A1c results are invalid for patients with abnormal amounts of HbF. Blood transfusions may impact the HbA1c concentration in the patient sample. Estimated Average Glucose 100 mg/dL [facility] Comment:eAG = Estimated ave rage glucose which is %A1C expressed asaverage glucose, using the formula of the [id number]-[id number] Glucose study (ADAG), Diabetes Care, Vol.31,#8,Mar. 2007 Blood Venous blood specimen / Unknown 04/30/2025 10:48 AM EDT 04/30/2025 11:59 AM EDT us Annetta Mendoza MD LAB BLOOD ORDERABLES Final Res ult [facility] [address] [place] [address] [phone] * (ABNORMAL) Comprehensive Metabolic Panel (04/30/2025 10:48 AM EDT) Sodium 141 135 - 145 mmol/L [facility] Potassium 5.0 3.3 - 5.1 mmol/L [facility] Chloride 107 96 - 108 mmol/L [facility] Carbon Dioxide 29 22 - 29 mmol/L [facility] Anion Gap 10(L) 12 - 20 [facility] Urea Nitrogen (BUN) 14 9 - 16 mg/dL [facility] Creatinine, Serum 0.94 0.5 - 1.4 mg/dL [facility] Estimated Glomerular Filt Rate >60 [facility] Comment:Chronic Kidney Disea se: Estimated GFR < 60 mL/min/1.47d2Kepxur Kidney Disease: Estimated GFR < 15 mL/min/1.73m2 Glucose 93 60 - 115 mg/dL [facility] Calcium 9.3 8.4 - 10.2 mg/dL [facility] Bilirubin, Total 0.4 0.0 - 1.0 mg/dL [facility] Aspartate Amino Transferase 25 5 - 37 U/L [facility] Alanine Aminotransferase 23 0 - 40 U/L [facility] Total Protein 7.1 6.5 - 8.0 g/dL [facility] Albumin Level 4.7 3.5 - 5.0 g/dL [facility] Alkaline Phosphatase 56 39 - 117 U/L [facility] Blood Venous blood specimen / Unknown 04/30/2025 10:48 AM EDT 04/30/2025 1:32 PM EDT Annetta Mendoza MD LAB BLOOD ORDERABLES Final Res ult Performing Organization Address [facility]/ZIP Co de Phone Number [facility] [address] [place] [phone] * TSH W/Reflex to FT4 (04/30/2025 10:48 AM EDT) TSH reflex Free T4 3.89 0.32 - 4.0 uIU/mL [facility] Blood Venous blood specimen / Unknown 04/30/2025 10:48 AM EDT 04/30/2025 1:32 PM EDT Annetta Mendoza MD LAB BLOOD ORDERABLES Final Res ult [facility] [address] [place] [address] [phone] documented in this encounter Visit Diagnoses Diagnosis Chronic left [...] documented as of this encounter Care Teams Electronic Systems Technician Relationship Specialty Start Date End Date Annetta Mendoza MD [address] [place] [address] PCP - General Family Medicine 02/05/22 documented as of this encounter
--- OUTSIDE RECORDS SUMMARY | 2025-05-02 10:33 | XMS_ITS | Encounter Summary ---
Author Organization [employer] Address [address] [facility] 7t [place] [address] Care Team Providers Care Mechanical Laboratory Technician Name Role Phone Annetta Mendoza MD Primary Care Provider [phone] Reason for Visit * Reason Onset Date Comments chart prep 04/29/2025 Encounter Details Date Type Department Care Team ([facility] st Contact Info) Description 04/29/2025 Telephone [facility] [address] [place], [place] [phone] Annetta Mendoza MD [address] [place], [place] [phone] chart prep Social History Tobacco Use Types [...] Description 05/08/2025 9:00 AM EDT Office Visit [facility] [address] [place] [address] Annetta Mendoza MD [address] [place] [address] 08/30/2025 11:00 AM EST Office Visit [facility] OPTOMET[facility] [address] [place] [address] Hallie Liu OD [address] [place] [address] documented as of this encounter Visit Diagnoses Not on filedocumented in this encounter Additional Health Concerns Assessment Noted Time PHQ-9 Depression Total Score: 0 04/20/20 24 10:47 AM EDT documented as of this encounter Care Teams Mechanical Laboratory Technician Relationship Specialty Start Date End Date Annetta Mendoza MD [address] [place] [address] PCP - General Family Medicine 02/05/22 documented as of this encounter
--- OUTSIDE RECORDS SUMMARY | 2025-05-02 10:33 | XMS_ITS | Encounter Summary ---
Author Organization [employer] Address [address] [place] [address] 7 [place] [address] Care Team Providers Care Cold Working Supervisor Name Role Phone Annetta Mendoza MD Primary Care Provider [phone] Encounter Details Date Type Department Care Team (Latest Contact Info) Description 10/29/2021 Abstract [facility] CONVERSIONS Dental, Provider, DDS Social History Tobacco Use Types Packs/Day Years Used Date Smoking Tobacco: Never Assessed Sex and Gender Information Value Date Recorded Sex Assigned at Male 05/31/2022 10:32 AM EDT Legal Sex Male 10:32 AM EDT Gender Identity Male 05/31/2022 10:32 AM EDT Sexual Orientation Straight 06/04/2024 8: 57 AM EST documented as of this encounter Plan of Treatment Upcoming Encounters Date Type Department Care Team (Late st Contact Info) Description 05/08/2025 9:00 AM EDT Office Visit [facility] MEDICINE [address] [place] [address] Annetta Mendoza MD [address] [place] [address] 08/30/2025 11:00 AM EST Office Visit [facility] OPTOMETRY [address] [place] [address] Hallie Liu OD [address] [place] [address] documented as of this encounter Visit Diagnoses Not on filedocumented in this encounter Care Teams Cold Working Supervisor Relationship Specialty Start Date End Date Annetta Mendoza MD [address] [place] [address] PCP - General Family Medicine 02/05/22 documented as of this encounter
--- OUTSIDE RECORDS SUMMARY | 2025-05-02 10:33 | XMS_ITS | Encounter Summary ---
Author Organization [employer] Address [address] [facility] 7t [place] [address] Care Team Providers Care Package Worker Name Role Phone Annetta Mnedoza MD Primary Care Provider [phone] Reason for Visit * Reason Onset Date Comments Lab Orders 04/30/2025 Encounter Details Date Type Department Care Team ([facility] st Contact Info) Description 04/30/2025 Telephone [facility] MEDICINE [address] [place], [place] [phone] Annetta Mendoza MD [address] [place], [place] [phone] Lab Orders Social History Tobacco Use Types [...] encounter Miscellaneous Notes * Telephone Encounter - Pau Carvalho RN - 04/30/2025 3:07 PM EDT [employer] reviewed, CMP is pending. The only test that was not drawn was for HSV, as this was placedfor external lab , not C. Pt. Would like to proceed with this test, advised pt. Order would be placed to match [facility] system's order so there should not be an issue when he returns to lab. Order placed * Telephone Encounter - Mari Omari Blair - 04/30/2025 11:38 AM EDT TC from pt requesting to re-fax or re-order the lab order for a Comprehensive Metabolic Panel. Pt stated he was advised to go to [facility] to complete that specific test, but when he went there, he was told there was nothing in the system. Contact pt at [phone] Need site interpreter documented in this encounter Plan of Treatment Upcoming Encounters Date Type Department Care Team (Late st Contact Info) Description 05/08/2025 9:00 AM EDT Office Visit [facility] MEDICINE [address] [place] [address] Annetta Mendoza MD [address] [place] [address] 08/30/2025 11:00 AM EST Office Visit [facility] OPTOMETRY [address] [place] [address] TarkaHallie, OD [address] [place] [address] Scheduled Orders Name Type Priority Associated Diagnoses Orde r Schedule Herpes Simplex Virus 1 and 2 (IgG), Type-Specific Antibodies Lab Routine At risk for sexually transmitted disease due to partner with genital herpes Expected: 04/30/2025 (Approximate), Expires: 04/30/2026 documented as of this encounter Visit Diagnoses Diagnosis At risk for sexually transmitted disease due to partner with genital herpes documented in this encounter Additional Health Concerns Assessment Noted Time PHQ-9 Depression Total Score: 0 04/20/20 24 10:47 AM EDT documented as of this encounter Care Teams Package Worker Relationship Specialty Start Date End Date Annetta Mendoza MD [address] [place] [address] [phone] PCP - General Family Medicine 02/05/22 documented as of this encounter
--- OUTSIDE RECORDS SUMMARY | 2025-05-02 10:33 | XMS_ITS | Encounter Summary ---
Author Organization [employer] Address [address] [facility] 7t [place] [address] Care Team Providers Care Healthcare Social Worker Name Role Phone Annetta Mendoza MD Primary Care Provider [phone] Encounter Details Date Type Department Care Team [...] Description 05/08/2025 9:00 AM EDT Office Visit [facility] MEDICINE [address] [place] [address] Annetta Mendoza MD [address] [place] [address] 08/30/2025 11:00 AM EST Office Visit [facility] OPTOMETRY [address] [place] [address] Hallie Liu, OD [address] [place] [address] documented as of this encounter Visit Diagnoses Not on filedocumented in this encounter Additional Health Concerns Assessment Noted Time PHQ-9 Depression Total Score: 0 04/20/20 24 10:47 AM EDT documented as of this encounter Care Teams Healthcare Social Worker Relationship Specialty Start Date End Date Annetta Mendoza MD [address] [place] [address] [phone] PCP - General Family Medicine 02/05/22 documented as of this encounter
--- OUTSIDE RECORDS SUMMARY | 2025-05-02 10:33 | XMS_ITS | Clinical Summary ---
Author Organization [facility] Address [address] [facility] [address] [place] [phone] Phone Care Team Providers Care Pawn Shop Keeper Name Role Phone Annetta Mendoza MD Primary [...] this topic Medical Devices Implanted Type Area Shredder Tender Device Identifier Shelf Expiration Date Model / Serial / Lot Q-Fix Knotless All-Suture [place], 1.8mm, With One Ultrabraided Suture, Blue Implanted:Qty: 2 on 08/09/2024 by Nirav Badillo DO at [facility] Right: Shoulder [employer] 06/22/2027 / / [id number] Insurance [facility] C3 ACO C3 ACO C3 ACO C3 ACO C3 ACO C3 ACO Care Teams Pawn Shop Keeper Relationship Specialty Start Date End Date Annetta Mendoza MD PCP - General Family Medicine 11/22/23 Additional Source Comments The information contained in this document represents components of the legal health record. It is not the complete legal health record.[facility]
--- OUTSIDE RECORDS SUMMARY | 2025-05-02 10:33 | XMS_ITS | Encounter Summary ---
Author Organization [facility] Address [address] [address] Phone Care Team Providers Care Appliance Counselor Name Role Phone Annetta Mendoza MD Primary Care Provider + Encounter Details Date Type Department Care Team (Late st Contact Info) Description 08/09/2024 Procedure Pass OR Admitting Dept - Virtual Department [address] [place] [address] Social History Tobacco Use Types Packs/Day Years [...] on filedocumented in this encounter Care Teams Appliance Counselor Relationship Specialty Start Date End Date Annetta Mendoza MD PCP - General Family Medicine 11/22/23 documented as of this encounter Additional Source Comments The information contained in this document represents components of the legal health record. It is not the complete legal health record.[facility]
--- OUTSIDE RECORDS SUMMARY | 2025-05-02 10:33 | XMS_ITS | Clinical Summary ---
Author Organization [employer] Address [address] [facility] 7t [place] [address] Care Team Providers Care Homicide Squad Captain Name Role Phone Annetta Mendoza MD Primary Care Provider [phone] Allergies No known active allergies Medications loratadine [...] more pain now. MRI ordered Appointment with [facility] Ortho scheduled for Jul 06, 2024 We will fax MRI results to [facility] when they become available Dental plaque 10/19/2023 [...] & Plan (04/11/2023 10:59 AM EDT): Call [facility] to schedule Vitamin D deficiency 12/08/2018 Hypoglycemia 09/29/2017 Mild intermittent asthma 09/29/2017 Encounters Date Type Department Care Team Description 04/30/2025 Telephone [facility] MEDICINE [address] [place] [phone] Annetta Mendoza MD Lab Orders 04/29/2025 3:45 PM EDT Office Visit [facility] MEDICINE [address] [place] [address] Annetta Mendoza MD Chronic left shoulder pain (Primary Dx); Dietary counseling; Exercise counseling; Overweight; Mild intermittent asthma without complication; Blurry vision; At risk for sexually transmitted disease due to partner with genital herpes; Encounter for immunization 04/29/2025 Travel 04/29/2025 Telephone [facility] MEDICINE [address] [place] [address] Annetta Mendoza MD chart prep 04/09/2025 10:00 AM EDT Office Visit [facility] WALK[facility]IN [facility] [address] [place] [address] Sugey Khan MD Pharyngitis, unspecified etiology (Primary [...] 04/29/2025 4:00 PM EDT Plan of Treatment Upcoming Encounters Date Type Department Care Team (Late st Contact Info) Description 05/08/2025 9:00 AM EDT Office Visit [facility] MEDICINE [address] [place] [address] Annetta Mendoza MD [address] [place] [address] 08/30/2025 11:00 AM EST Office Visit [facility] OPTOMETRY [address] [place] [address] Hallie Liu, OD [address] [place] [address] Health Maintenance Due Date Last Done Comments Disability Screening 1998 Alcohol/Substance Use Screening 2010 Family Planning (PISQ) 2013 HPV Vaccines (1 - Male 3-dose series) 2013 Dental X-Ray: Bitewings 10/19/2024 10/19/19, 10/27/2021, 01/08/2019, Additional history exists Dental X-Ray: Full Mouth 10/28/2024 10/27/2021, 04/2018 Dental Oral Exam 01/15/2025 07/16/2024, , [...] Procedure Name Priority Date/Time Associated Diagnosis Comments HEMOGLOBIN A1C Routine 04/30/2025 10:48 AM EDT Overweight COMPREHENSIVE METABOLIC PANEL Routine 04/30/2025 10:48 AM EDT Overweight TSH W/REFLEX TO FT4 Routine 04/30/2025 1 0:48 AM EDT Overweight POCT RAPID COVID ANTIGEN Routine 04/09/2025 10:09 [...] Recently Relevant to Health Maintenance Results * TSH W/Reflex to FT4 (04/30/2025 10:48 AM EDT) TSH reflex Free T4 3.89 0.32 - 4.0 uIU/mL [facility] Blood Venous blood specimen / Unknown 04/30/2025 10:48 AM EDT 04/30/2025 1:32 PM EDT Annetta Mendoza MD LAB BLOOD ORDERABLES Final Res ult Performing Organization Address [facility]/ZIP Co de Phone Number [facility] [address] [place] [address] [phone] * Hemoglobin A1c (04/30/2025 10:48 AM EDT) Hemoglobin A1c 5.1 <6.0 % [facility] Comment:Hemoglobin A1C Refer ence Range Adults: 4.8 - 6.0 % Non diabetic: < 6.0 % Goal: < 7.0 %Additional Action Suggested: > 8.0 %Note: Hemoglobin A1c results are invalid for patients with abnormal amounts of HbF. Blood transfusions may impact the HbA1c concentration in the patient sample. Estimated Average Glucose 100 mg/dL [facility] Comment:eAG = Estimated ave rage glucose which is %A1C expressed asaverage glucose, using the formula of the L8A-[id number] Glucose study (ADAG), Diabetes Care, Vol.31,#8,Mar. 2007 Blood Venous blood specimen / Unknown 04/30/2025 10:48 AM EDT 04/30/2025 11:59 AM EDT Annetta Mendoza MD LAB BLOOD ORDERABLES Final Res ult Performing Organization Address [facility]/ZIP Co de Phone Number [facility] [address] [place] [phone] * (ABNORMAL) Comprehensive Metabolic Panel (04/30/2025 10:48 AM EDT) [facility] Sodium 141 135 - 145 mmol/L [facility] Potassium 5.0 3.3 - 5.1 mmol/L [facility] Chloride 107 96 - 108 mmol/L [facility] Carbon Dioxide 29 22 - 29 mmol/L [facility] Anion Gap 10(L) 12 - 20 [facility] Urea Nitrogen (BUN) 14 9 - 16 mg/dL [facility] Creatinine, Serum 0.94 0.5 - 1.4 mg/dL [facility] Estimated Glomerular Filt Rate >60 [facility] Comment:Chronic Kidney Disea se: Estimated GFR < 60 mL/min/[id number] Kidney Disease: Estimated GFR < 15 mL/min/1.73m2 Glucose 93 60 - 115 mg/dL [facility] Calcium 9.3 8.4 - 10.2 mg/dL [facility] Bilirubin, Total 0.4 0.0 - 1.0 mg/dL [facility] Aspartate Amino Transferase 25 5 - 37 U/L [facility] Alanine Aminotransferase 23 0 - 40 U/L [facility] Total Protein 7.1 6.5 - 8.0 g/dL [facility] Albumin Level 4.7 3.5 - 5.0 g/dL [facility] Alkaline Phosphatase 56 39 - 117 U/L [facility] Blood Venous blood specimen / Unknown 04/30/2025 10:48 AM EDT 04/30/2025 1:32 PM EDT us Annetta Mendoza MD LAB BLOOD ORDERABLES Final Res ult [facility] [address] [place] [address] [phone] * Influenza B (ID NOW Rapid Molecular) (04/09/2025 10:09 AM EDT) [facility] Influenza B Negative Negative, Indeterminate [facility] Swab 04/09/2025 10:0 9 AM EDT Sugey Khan MD POINT OF CARE TEST ENTER/E DIT ORDERABLES Final Result Performing Organization Address [facility]/ZIP Co de Phone Number [facility] [address] [place] [phone] * Influenza A (ID NOW Rapid Molecular) (04/09/2025 10:09 AM EDT) [facility] Influenza A Negative Negative, Indeterminate [facility] Swab 04/09/2025 10:0 9 AM EDT Sugey Khan MD POINT OF CARE TEST ENTER/E DIT ORDERABLES Final Result Performing Organization Address [facility] Co de Phone Number [facility] [address] [place] [phone] * POCT Rapid COVID Ag (04/09/2025 10:09 AM EDT) [facility] Rapid COVID Ag Negative Swab 04/09/2025 10:0 9 AM EDT Sugey Khan MD POINT OF CARE TEST ENTER/E DIT ORDERABLES Final Result * POCT rapid strep A manually resulted (04/09/2025 10:09 AM EDT) [facility] Rapid Strep A Screen Negative Negative, None Detected [facility] Swab 04/09/2025 10:0 9 AM EDT Sugey Khan MD POINT OF CARE TEST ENTER/E DIT ORDERABLES Final Result Performing Organization Address [facility] Co de Phone Number [facility] [address] [place] [phone] * Hepatitis C Ab (04/11/2023 12:02 PM EDT) Hepatitis C Antibody Nonreactive Nonreactive [facility] Comment:Antibodies to HCV no t detected; does not exclude early acuteHCV infection. Blood 04/11/2023 12:0 2 PM EDT 04/11/2023 1:15 PM EDT Annetta Mendoza MD LAB BLOOD ORDERABLES Final Res ult Performing Organization Address [facility] Co de Phone Number [facility] [address] [place] [phone] [phone] * HIV 1/2 ANTIGEN/ANTIBODY,FOURTH GENERATION W/RFL (04/02/2022 10:03 AM EDT) HIV-1/2 ANTIGEN AND ANTIBODIES, 4TH GENERATION W/ REFLEX NON-REACT [facility] NON-REACT [facility] Comment: HIV-1 antigen and HIV-1/HIV-2 [...] purpose. For additional information please refer to http://[email or web address]/faq/REG319 (This link is being provided for informational/ educational purposes only.) The performance of this assay has not been clinically validated in patients less than 2 years old. 04/02/2022 10:0 3 AM EDT Annetta Mendoza MD LAB BLOOD ORDERABLES Final Res ult [facility] [address] from Last 3 Months or Most Recently Relevant to Health Maintenance Insurance [place] [facility] MEDICAID STAND ADULT Care Teams Homicide Squad Captain Relationship Specialty Start Date End Date Annetta Mendoza MD [address] [place] [phone] PCP - General Family Medicine 02/05/22
--- OUTSIDE RECORDS SUMMARY | 2025-05-02 10:33 | XMS_ITS | Encounter Summary ---
Author Organization [employer] Address [address] [place] [address] 7 [place] [address] Care Team Providers Care Seasonal Driver Name Role Phone Annetta Mendoza MD Primary Care Provider Encounter Details Date Type Department Care Team (Latest Contact Info) Description 06/07/2019 Abstract [facility] CONVERSIONS Dental, Provider, DDS Social History Tobacco [...] Description 05/08/2025 9:00 AM EDT Office Visit [facility] MEDICINE [address] [place] [address] Annetta Mendoza MD [address] [place] [address] 08/30/2025 11:00 AM EST Office Visit [facility] OPTOMETRY [address] [place] [address] Hallie Liu OD [address] [place] [address] documented as of this encounter Visit Diagnoses Not on filedocumented in this encounter Care Teams Seasonal Driver Relationship Specialty Start Date End Date Annetta Mendoza MD [address] [place] [address] PCP - General Family Medicine 02/05/22 documented as of this encounter
--- OUTSIDE RECORDS SUMMARY | 2025-05-02 10:33 | XMS_ITS | Encounter Summary ---
Author Organization [employer] Address [address] [facility] 7t [place] [address] Care Team Providers Care Meat Butcher Name Role Phone Annetta Mendoza MD Primary Care Provider [phone] Reason for Referral * Consultation (Routine) - Closed Specialty Diagnoses / Procedures Referred By Contac t Referred To Contact Physical Therapy Diagnoses Labral tear of shoulder, right, sequela Annetta Mendoza MD [address] [place] [address] Phone: tel: fax: [facility] [address] [place], [place] Phone: tel: fax: Referral ID Status Reason Start Date Expiration Date V isits Requested Visits Authorized [id number] Closed Specialty Services Required 09/27/2024 09/27/2025 6 6 Encounter Details Date Type Department Care Team (Late st Contact Info) Description 09/28/2024 Orders Only [facility] MEDICINE [address] [place], [place] [phone] Annetta Mendoza MD [address] [place], [place] [phone] Labral tear of shoulder, right, sequela (Primary [...] Description 05/08/2025 9:00 AM EDT Office Visit [facility] MEDICINE [address] [place] [address] Annetta Mendoza MD [address] [place] [address] 08/30/2025 11:00 AM EST Office Visit [facility] OPTOMETRY [address] [place] [address] Hallie Liu, OD [address] [place] [address] Scheduled Referrals Name Type Priority Associated Diagnoses [...] documented as of this encounter Care Teams Meat Butcher Relationship Specialty Start Date End Date Annetta Mendoza MD [address] [place] [address] PCP - General Family Medicine 02/05/22 documented as of this encounter
== END 2025-05-02 09:33 | disposition home or self-care (01) ==
LOC: HO.HHCL 09:32
PROVIDERS: PCP General Practice; Visit Provider General Practice
DX: Z91.89 Other specified personal risk factors, not elsewhere classified (principal)
CPT/HCPCS: 36415; 86695; 86696